=== PATIENT | male | born 1965 | race Caucasian/White ===

== ENCOUNTER 2025-02-10 15:24 | Inpatient (IN) | payer MEDICAID ==
[2025-02-10] VITALS (25 sets, daily range): BP systolic 58–142; BP diastolic 27–114; PULSE 67–89; RESP 15–21; TEMP 35.66952–35.94732; O2SAT 99–100
[~2025-02-10] VITALS: Ht 175.3 cm; Wt 85.3 kg
[2025-02-10] MEDS: LEVETIRACETAM 1000MG PREMIX 100 ML IV ONE (16:20)
[2025-02-10] MEDS: SODIUM CHLORIDE 0.9% 1,000 ML IV ONE (16:20)
[2025-02-10 16:25] LABS: INR 1.4
[2025-02-10 16:32] LABS: TROPONIN I HIGH SENSITIVITY 244 ng/L (3.0-53)
[2025-02-10 16:38] LABS: ASPARTATE AMINOTRANSFERASE 48 IU/L (<34); BILIRUBIN DIRECT < 0.1 mg/dL (<=3.0); BILIRUBIN TOTAL 0.2 mg/dL (0.1-1.0); ETHANOL BLOOD < 10 mg/dL (<10); PROTEIN TOTAL 6.1 g/dL (6.0-8.3)
[2025-02-10 16:42] LABS: CREATININE 29.3 mg/dL (0.6-1.3); UREA NITROGEN BLOOD 183 mg/dL (9-23)
[2025-02-10] MEDS ORDERED: SODIUM BICARBONATE 8.4% 50MEQ/50ML VIAL IV ONE (17:30)
[2025-02-10] MEDS ORDERED: ALBUTEROL (0.5%) 2.5MG/0.5ML NEB HHN ONE (17:30)
[2025-02-10] MEDS ORDERED: SODIUM BICARBONATE 8.4% 50MEQ/50ML VIAL IV SCH (17:45)
[2025-02-10] MEDS ORDERED: ALBUTEROL (0.5%) 2.5MG/0.5ML NEB HHN SCH (17:45)
[2025-02-10] MEDS: DEXTROSE 50% WATER 50ML SYRINGE IV ONE (17:49)
[2025-02-10] MEDS: CALCIUM CHLORIDE 1GM/10ML SYR IV ONE (17:49)
[2025-02-10] MEDS: INSULIN REGULAR (HUMULIN R) 1000UNITS/10ML VIAL IV ONE (17:50)
[2025-02-10] MEDS ORDERED: SODIUM BICARBONATE 8.4% 50MEQ/50ML SYR IV NR (18:00)
[2025-02-10 19:01] LABS: MEAN PLATELET VOLUME 11.3 fl (7.4-10.4); PLATELET 83 x1000/uL (130-400); RED BLOOD CELL COUNT 1.57 mill/uL (4.7-6.1); RED CELL DISTRIBUTION WIDTH 16.3 % (11.6-14.6)
[2025-02-10 19:08] LABS: HEMATOCRIT. 16.2 % (42.0-52.0); HEMOGLOBIN. 4.5 g/dL (14.0-18.0)
[2025-02-10 19:10] LABS: TROPONIN I HIGH SENSITIVITY 246 ng/L (3.0-53)
[2025-02-10] MEDS: FUROSEMIDE 40MG/4ML VIAL IVP NR (19:21)
[2025-02-10 19:23] LABS: BG BASE EXCESS -23.8 mmol/L (-2.0-3.0); BG CARBOXYHEMOGLOBIN 2.1 % (0.5-1.5); BG DEOXYHEMOGLOBIN 2.8 % (0.0-5.0); BG FRACTION INSPIRED OXYGEN 21; BG HCO3 ACT 4.1 mmol/L (21.0-28.0); BG METHEMOGLOBIN 1.1 % (0.5-1.5); BG OXYGEN SATURATION 97.1 % (94.0-98.0); BG OXYHEMOGLOBIN 94.0 % (94.0-98.0); BG PCO2 14.5 mmHg (35.0-48.0); BG PH 7.065 (7.350-7.450); BG PO2 136.3 mmHg (83.0-108.0); BG SAMPLE SITE LEFT RADIAL; BG TOTAL HEMOGLOBIN 3.8 g/dL (13.5-17.5); BG VENT MODE ROOM AIR
[2025-02-10] MEDS ORDERED: SODIUM BICARBONATE 8.4% 50MEQ/50ML SYR IV SCH (19:30)
[2025-02-10] MEDS ORDERED: SODIUM BICARBONATE 150 MEQ in DEXTROSE 5% WATER 850 ML IV SCH (20:00)
[2025-02-10 20:09] LABS: LYMPHOCYTES % MANUAL 7.0 % (20.0-50.0); NEUTROPHILS % MANUAL 93.0 % (45.0-75.0); PLATELET ESTIMATE DECREASED
[2025-02-10] MEDS ORDERED: GUAIFENESIN 200MG/10ML SUGAR FREE UDC PO PRN (20:15)
[2025-02-10] MEDS ORDERED: IPRATROPIUM/ALBUTEROL 0.5-3(2.5)MG/3ML NEB HHN PRN (20:15)
[2025-02-10] MEDS ORDERED: ACETAMINOPHEN 325MG TABLET PO PRN ×2 (20:15)
[2025-02-10] MEDS ORDERED: DOCUSATE SODIUM 100MG CAPSULE PO PRN (20:15)
[2025-02-10] MEDS ORDERED: LORAZEPAM 0.5MG TABLET PO PRN (20:15)
[2025-02-10 20:26] LABS: UREA NITROGEN BLOOD 197 mg/dL (9-23)
[2025-02-10 20:27] LABS: CREATININE 27.2 mg/dL (0.6-1.3)
[2025-02-10] MEDS: CALCIUM GLUCONATE 1GM PREMIX 50 ML IV SCH (21:39)
[2025-02-10] MEDS: SODIUM BICARBONATE 150 MEQ in DEXTROSE 5% WATER 850 ML IV SCH (21:46)
[2025-02-10 22:36] LABS: MEAN PLATELET VOLUME 10.7 fl (7.4-10.4); PLATELET 100 x1000/uL (130-400); RED BLOOD CELL COUNT 1.28 mill/uL (4.7-6.1); RED CELL DISTRIBUTION WIDTH 15.3 % (11.6-14.6)
[2025-02-10 22:44] LABS: HEMOGLOBIN. 3.8 g/dL (14.0-18.0)
[2025-02-10 22:45] LABS: HEMATOCRIT. 12.1 % (42.0-52.0)
[2025-02-10] MEDS ORDERED: IOHEXOL-350 100 ML BOTTLE ONE (23:19)
[2025-02-10 23:25] LABS: PROTEIN TOTAL 5.7 g/dL (6.0-8.3)
[2025-02-10 23:26] LABS: ASPARTATE AMINOTRANSFERASE 46 IU/L (<34); HEPATITIS A AB IGM NEGATIVE (Negative); HEPATITIS B CORE AB IGM NEGATIVE (Negative)
[2025-02-10 23:27] LABS: BILIRUBIN TOTAL 0.2 mg/dL (0.1-1.0); HEPATITIS C AB NON REACTIVE (Neg) (Negative)
[2025-02-10 23:29] LABS: TROPONIN I HIGH SENSITIVITY 239 ng/L (3.0-53)
[2025-02-10 23:36] LABS: UREA NITROGEN BLOOD 196 mg/dL (9-23)
[2025-02-10 23:37] LABS: CREATININE 23.9 mg/dL (0.6-1.3)
[2025-02-10 23:39] LABS: PHOSPHORUS 13.5 mg/dL (2.5-4.9)
[2025-02-11] VITALS (103 sets, daily range): BP systolic 106–175; BP diastolic 41–130; PULSE 68–95; RESP 12–29; TEMP 35.78064–37.55856; O2SAT 95–100
[2025-02-11 00:33] LABS: LYMPHOCYTES % MANUAL 6.0 % (20.0-50.0); MONOCYTES % MANUAL 5.0 % (2.0-8.0); NEUTROPHILS % MANUAL 89.0 % (45.0-75.0); PLATELET ESTIMATE NORMAL
[2025-02-11] MEDS ORDERED: DEXTROSE 50% WATER 50ML SYRINGE IV PRN (02:30)
[2025-02-11 02:42] LABS: MEAN PLATELET VOLUME 10.1 fl (7.4-10.4); PLATELET 81 x1000/uL (130-400); RED BLOOD CELL COUNT 2.05 mill/uL (4.7-6.1); RED CELL DISTRIBUTION WIDTH 15.3 % (11.6-14.6)
[2025-02-11 02:57] LABS: PROTEIN TOTAL 4.9 g/dL (6.0-8.3); UREA NITROGEN BLOOD 99 mg/dL (9-23)
[2025-02-11 02:58] LABS: ASPARTATE AMINOTRANSFERASE 95 IU/L (<34); HEMATOCRIT. 18.0 % (42.0-52.0); HEMOGLOBIN. 5.9 g/dL (14.0-18.0); PHOSPHORUS 7.2 mg/dL (2.5-4.9)
[2025-02-11 02:59] LABS: BILIRUBIN TOTAL 0.6 mg/dL (0.1-1.0)
[2025-02-11 03:02] LABS: CREATININE 14.3 mg/dL (0.6-1.3)
[2025-02-11] MEDS ORDERED: NIFE-72 PO (04:26)
[2025-02-11] MEDS ORDERED: CARV25TA47 PO (04:26)
[2025-02-11] MEDS ORDERED: HYDR25TA78 PO (04:26)
[2025-02-11 05:24] LABS: LYMPHOCYTES % MANUAL 7.0 % (20.0-50.0); MONOCYTES % MANUAL 4.0 % (2.0-8.0); NEUTROPHILS % MANUAL 89.0 % (45.0-75.0)
[2025-02-11 05:25] LABS: PLATELET ESTIMATE DECREASED
[2025-02-11 07:37] LABS: CLARITY URINE CLOUDY (CLEAR); COLOR URINE YELLOW (YELLOW); GLUCOSE URINE NEGATIVE (NEGATIVE); KETONES URINE 1+ (NEGATIVE); LEUKOCYTE ESTERASE URINE 1+ (NEGATIVE); NITRITE URINE NEGATIVE (NEGATIVE); OCCULT BLOOD URINE 2+ (NEGATIVE); PH URINE 5.5 (4.5-8.0); PROTEIN URINE 3+ (NEGATIVE); SPECIFIC GRAVITY URINE 1.014 (1.005-1.030); UROBILINOGEN URINE 0.2 E.U./dL (0.2-1.0)
[2025-02-11] MEDS: ONDANSETRON HCL 4MG/2ML INJ IV PRN (07:40)
[2025-02-11] MEDS: SODIUM CHLORIDE 0.45% 1,000 ML IV SCH (07:40)
[2025-02-11] MEDS: INSULIN LISPRO 100 UNITS/ML SUBCUT SCH (07:50)
[2025-02-11] MEDS: BLOOD SUGAR DIAGNOSTIC STRIP TEST SCH (07:50)
[2025-02-11 08:07] LABS: SQUAMOUS EPITHELIAL CELL URINE RARE /lpf (RARE/1+)
[2025-02-11 08:09] LABS: BACTERIA URINE 1+; WBC URINE 25-50 /hpf (0-2)
[2025-02-11 08:18] LABS: *AMPHETAMINES SCREEN URINE NEGATIVE (NEGATIVE); *BARBITURATES SCREEN URINE NEGATIVE (NEGATIVE); *BENZODIAZEPINES SCREEN URINE NEGATIVE (NEGATIVE); *COCAINE SCREEN URINE NEGATIVE (NEGATIVE); CANNABINOID URINE SCREEN NEGATIVE (NEGATIVE); ECSTASY MDMA SCREEN URINE NEGATIVE (NEGATIVE); METHADONE URINE SCREEN NEGATIVE (NEGATIVE); OPIATES URINE SCREEN NEGATIVE (NEGATIVE); PHENCYCLIDINE URINE SCREEN NEGATIVE (NEGATIVE)
[2025-02-11 08:38] LABS: BG BASE EXCESS -6.2 mmol/L (-2.0-3.0); BG CARBOXYHEMOGLOBIN 1.4 % (0.5-1.5); BG DEOXYHEMOGLOBIN 1.5 % (0.0-5.0); BG FLOW(L/min) 2.00 L/min; BG FRACTION INSPIRED OXYGEN 28; BG HCO3 ACT 16.7 mmol/L (21.0-28.0); BG METHEMOGLOBIN 0.3 % (0.5-1.5); BG OXYGEN SATURATION 98.5 % (94.0-98.0); BG OXYHEMOGLOBIN 96.8 % (94.0-98.0); BG PCO2 23.3 mmHg (35.0-48.0); BG PH 7.474 (7.350-7.450); BG PO2 116.4 mmHg (83.0-108.0); BG SAMPLE SITE RIGHT RADIAL; BG TOTAL HEMOGLOBIN 6.6 g/dL (13.5-17.5); BG VENT MODE NASAL CANNULA
[2025-02-11] MEDS ORDERED: PIPERACILLIN/TAZO 3.375G/50ML 50 ML IV SCH (09:00)
[2025-02-11] MEDS: PREDNISONE 10MG TABLET PO SCH (09:00)
[2025-02-11] MEDS: PANTOPRAZOLE SODIUM 40 MG/VIAL IV SCH (10:08)
[2025-02-11] MEDS: LEVOFLOXACIN 750MG PREMIX 150 ML IV SCH (10:08)
[2025-02-11 11:49] LABS: MEAN PLATELET VOLUME 10.5 fl (7.4-10.4); PLATELET 70 x1000/uL (130-400); RED BLOOD CELL COUNT 2.30 mill/uL (4.7-6.1); RED CELL DISTRIBUTION WIDTH 15.2 % (11.6-14.6)
[2025-02-11 11:58] LABS: HEMATOCRIT. 20.3 % (42.0-52.0); HEMOGLOBIN. 6.7 g/dL (14.0-18.0)
[2025-02-11 12:10] LABS: TRIGLYCERIDE 125 mg/dL (0-150)
[2025-02-11 12:11] LABS: LDL CHOLESTEROL 16 mg/dL (5-100)
[2025-02-11 12:14] LABS: CORTISOL 19.0 ucg/dL
[2025-02-11 12:15] LABS: T4 FREE 0.50 ng/dL (0.89-1.76)
[2025-02-11 12:19] LABS: FOLIC ACID (FOLATE) SERUM 7.25 ng/mL (>5.38)
[2025-02-11 12:35] LABS: TROPONIN I HIGH SENSITIVITY 660 ng/L (3.0-53)
[2025-02-11 12:37] LABS: VITAMIN B12 SERUM > 2000 pg/mL (211-911)
[2025-02-11 12:48] LABS: BAND% 7.0 % (1.0-6.0); LYMPHOCYTES % MANUAL 6.0 % (20.0-50.0); MONOCYTES % MANUAL 2.0 % (2.0-8.0); NEUTROPHILS % MANUAL 85.0 % (45.0-75.0); PLATELET ESTIMATE DECREASED
[2025-02-11] MEDS: MYCOPHENOLATE SODIUM 180 MG TABLET.DR PO SCH (16:51)
[2025-02-11] MEDS: TACROLIMUS 1MG CAPSULE PO SCH (16:52)
[2025-02-11] MEDS: LEVETIRACETAM 1000MG PREMIX 100 ML IV SCH (20:25)
[2025-02-11] MEDS: CLONIDINE 0.1MG TABLET PO PRN (20:48)
[2025-02-11 22:20] LABS: UREA NITROGEN BLOOD 99 mg/dL (9-23)
[2025-02-11 22:21] LABS: PROTEIN TOTAL 4.6 g/dL (6.0-8.3)
[2025-02-11 22:22] LABS: ASPARTATE AMINOTRANSFERASE 36 IU/L (<34)
[2025-02-11 22:23] LABS: BILIRUBIN TOTAL 0.5 mg/dL (0.1-1.0)
[2025-02-11 22:39] LABS: CREATININE 16.3 mg/dL (0.6-1.3); PHOSPHORUS 8.9 mg/dL (2.5-4.9)
[2025-02-12] VITALS (96 sets, daily range): BP systolic 113–180; BP diastolic 43–131; PULSE 63–84; RESP 11–20; TEMP 36.114–37; O2SAT 94–100
[2025-02-12 07:21] LABS: BASOPHILS % 0.2 % (0.0-2.0); EOSINOPHILS % 1.5 % (0.0-5.0); HEMATOCRIT. 22.2 % (42.0-52.0); HEMOGLOBIN. 7.5 g/dL (14.0-18.0); LYMPHOCYTES % 7.6 % (20.0-50.0); MEAN PLATELET VOLUME 9.9 fl (7.4-10.4); MONOCYTES % 10.4 % (2.0-8.0); NEUTROPHILS % 80.3 % (40.0-76.0); PLATELET 60 x1000/uL (130-400); RED BLOOD CELL COUNT 2.51 mill/uL (4.7-6.1); RED CELL DISTRIBUTION WIDTH 15.2 % (11.6-14.6)
[2025-02-12 08:09] LABS: CREATININE 16.3 mg/dL (0.6-1.3); UREA NITROGEN BLOOD 106 mg/dL (9-23)
[2025-02-12 08:11] LABS: PHOSPHORUS 9.2 mg/dL (2.5-4.9)
[2025-02-12] MEDS: CALCIUM ACETATE 667MG CAPSULE PO SCH (08:52)
[2025-02-12] MEDS: AMLODIPINE 10MG TABLET PO SCH (18:05)
[2025-02-13] VITALS (91 sets, daily range): BP systolic 124–154; BP diastolic 52–141; PULSE 59–87; RESP 9–22; TEMP 36.5–37; O2SAT 97–100
[2025-02-13 06:16] LABS: BASOPHILS % 0.2 % (0.0-2.0); EOSINOPHILS % 2.1 % (0.0-5.0); HEMATOCRIT. 22.8 % (42.0-52.0); HEMOGLOBIN. 7.7 g/dL (14.0-18.0); LYMPHOCYTES % 8.5 % (20.0-50.0); MEAN PLATELET VOLUME 9.9 fl (7.4-10.4); MONOCYTES % 10.2 % (2.0-8.0); NEUTROPHILS % 79.0 % (40.0-76.0); PLATELET 64 x1000/uL (130-400); RED BLOOD CELL COUNT 2.61 mill/uL (4.7-6.1); RED CELL DISTRIBUTION WIDTH 15.0 % (11.6-14.6)
[2025-02-13 06:27] LABS: UREA NITROGEN BLOOD 62 mg/dL (9-23)
[2025-02-13 06:29] LABS: PHOSPHORUS 6.1 mg/dL (2.5-4.9)
[2025-02-13 06:30] LABS: CREATININE 10.8 mg/dL (0.6-1.3)
[2025-02-13] MEDS: LEVOFLOXACIN 500MG PREMIX 100 ML IV SCH (09:57)
[2025-02-14] VITALS (26 sets, daily range): BP systolic 125–163; BP diastolic 58–114; PULSE 71–83; RESP 11–18; TEMP 36.4–37.2; O2SAT 95–99
[2025-02-14 07:34] LABS: UREA NITROGEN BLOOD 54.0 mg/dL (9-23)
[2025-02-14 09:58] LABS: CREATININE 11.4 mg/dL (0.6-1.3)
[2025-02-14 11:14] LABS: BASOPHILS % 0.2 % (0.0-2.0); EOSINOPHILS % 3.4 % (0.0-5.0); HEMATOCRIT. 22.9 % (42.0-52.0); HEMOGLOBIN. 7.6 g/dL (14.0-18.0); LYMPHOCYTES % 7.8 % (20.0-50.0); MEAN PLATELET VOLUME 9.4 fl (7.4-10.4); MONOCYTES % 6.8 % (2.0-8.0); NEUTROPHILS % 81.8 % (40.0-76.0); PLATELET 85 x1000/uL (130-400); RED BLOOD CELL COUNT 2.61 mill/uL (4.7-6.1); RED CELL DISTRIBUTION WIDTH 14.4 % (11.6-14.6)
[2025-02-14] MEDS: POLYETHYLENE GLYCOL 3350 (17GM) 1 DOSE PACK PO SCH (18:39)
[2025-02-15] VITALS (13 sets, daily range): BP systolic 127–148; BP diastolic 63–79; PULSE 69–83; RESP 9–18; TEMP 36.6–37.2; O2SAT 95–98
[2025-02-15] MEDS: CLOPIDOGREL 75MG TABLET PO SCH (18:51)
[2025-02-16] VITALS (18 sets, daily range): BP systolic 131–159; BP diastolic 56–73; PULSE 68–91; RESP 10–19; TEMP 36.6696–37.2; O2SAT 96–100
[2025-02-16 08:13] LABS: BASOPHILS % 0.2 % (0.0-2.0); EOSINOPHILS % 3.0 % (0.0-5.0); HEMATOCRIT. 23.5 % (42.0-52.0); HEMOGLOBIN. 7.8 g/dL (14.0-18.0); LYMPHOCYTES % 8.7 % (20.0-50.0); MEAN PLATELET VOLUME 8.9 fl (7.4-10.4); MONOCYTES % 8.0 % (2.0-8.0); NEUTROPHILS % 80.1 % (40.0-76.0); PLATELET 91 x1000/uL (130-400); RED BLOOD CELL COUNT 2.67 mill/uL (4.7-6.1); RED CELL DISTRIBUTION WIDTH 14.4 % (11.6-14.6)
[2025-02-16 08:25] LABS: UREA NITROGEN BLOOD 67.0 mg/dL (9-23)
[2025-02-16 08:32] LABS: CREATININE 9.5 mg/dL (0.6-1.3)
[2025-02-16] MEDS ORDERED: LIDOCAINE HCL 1% 10 MG/ML 10ML VIAL ONE (12:52)
[2025-02-17] VITALS: BP 129/61; PULSE 72; RESP 17; TEMP 36.6; O2SAT 98
[2025-02-17 02:00] VITALS: BP 148/64; PULSE 74; RESP 20; O2SAT 99
[2025-02-17 04:00] VITALS: BP 142/75; PULSE 86; RESP 18; TEMP 36.8; O2SAT 91
[2025-02-17 06:00] VITALS: BP 149/65; PULSE 75; RESP 19; O2SAT 99
[2025-02-17 08:00] VITALS: BP 153/71; PULSE 79; RESP 20; TEMP 36.6; O2SAT 99
== END 2025-02-17 09:20 | disposition short-term general hospital (02) | DRG 45 ==
LOC: ER 15:24 → EDBEDREQ 15:43 → CVICU 17:21 → EDBEDREQ 17:32 → EDBEDREQSVC 17:32 → EDBEDREQTM 17:32 → 5EST 02-14 01:11
PROVIDERS: ADMIT Internal Medicine; ATTEND Internal Medicine
PROC: 30233N1 Transfusion of Nonautologous Red Blood Cells into Peripheral Vein, Percutaneous Approach (ICD-10-PCS; principal; 2025-02-10)
PROC: 5A1D70Z Performance of Urinary Filtration, Intermittent, Less than 6 Hours Per Day (ICD-10-PCS; 2025-02-10)
PROC: 5A1D70Z Performance of Urinary Filtration, Intermittent, Less than 6 Hours Per Day (ICD-10-PCS; 2025-02-12)
PROC: 4A00X4Z Measurement of Central Nervous Electrical Activity, External Approach (ICD-10-PCS; 2025-02-12)
PROC: 5A1D70Z Performance of Urinary Filtration, Intermittent, Less than 6 Hours Per Day (ICD-10-PCS; 2025-02-14)
PROC: 4A00X4Z Measurement of Central Nervous Electrical Activity, External Approach (ICD-10-PCS; 2025-02-15)
PROC: 5A1D70Z Performance of Urinary Filtration, Intermittent, Less than 6 Hours Per Day (ICD-10-PCS; 2025-02-16)
PROC: 0T903ZZ Drainage of Right Kidney, Percutaneous Approach (ICD-10-PCS; 2025-02-16)
DX: I63.9 Cerebral infarction, unspecified (principal); J96.01 Acute respiratory failure with hypoxia; N17.0 Acute kidney failure with tubular necrosis; G93.41 Metabolic encephalopathy; E87.0 Hyperosmolality and hypernatremia; T86.11 Kidney transplant rejection; N18.6 End stage renal disease; D69.6 Thrombocytopenia, unspecified; I12.0 Hypertensive chronic kidney disease with stage 5 chronic kidney disease or end stage renal disease; Z99.2 Dependence on renal dialysis; N13.6 Pyonephrosis; R56.9 Unspecified convulsions; D64.9 Anemia, unspecified; E11.22 Type 2 diabetes mellitus with diabetic chronic kidney disease; I65.23 Occlusion and stenosis of bilateral carotid arteries; E87.20 Acidosis, unspecified; E83.39 Other disorders of phosphorus metabolism; E83.51 Hypocalcemia; E83.41 Hypermagnesemia; E87.70 Fluid overload, unspecified; E87.5 Hyperkalemia; E88.09 Other disorders of plasma-protein metabolism, not elsewhere classified; D72.829 Elevated white blood cell count, unspecified; I21.A1 Myocardial infarction type 2; I48.91 Unspecified atrial fibrillation; E78.5 Hyperlipidemia, unspecified; Z79.4 Long term (current) use of insulin; Z79.899 Other long term (current) drug therapy; Z86.73 Personal history of transient ischemic attack (TIA), and cerebral infarction without residual deficits; Z91.148 Patient's other noncompliance with medication regimen for other reason
CPT/HCPCS: 36415; 36600; 50432; 70496; 70498; 70551; 71045; 74018; 80048; 80053; 80061; 80076; 80197; 80305; 80320; 81003; 82270; 82330; 82375; 82533; 82550; 82607; 82746; 82805; 82962; 83540; 83550; 83605; 83735; 84100; 84145; 84439; 84443; 84484; 85014; 85018; 85025; 86705; 86709; 86850; 86900; 86920; 87340; 90935; 92610; 93005; 93970; 95816; 97112; 97116; 97162; 97166; 99291; A4606; C1769; J0612; J1815; J1938; J1953; J1956; J2003; J2405; J2470; J3490; J7030; J7070; J7507; J7512; J7517; L8514; P9016; Q9967; G0480